=== PATIENT | female | born 1950 | race Caucasian/White ===

== ENCOUNTER → 2017-07-29 | Outpatient (CLI) | payer OTHER | LOC: FIMAGING 09:49 | PROVIDERS: ATTEND Orthopaedic Surgery | DX: Z01.818 Encounter for other preprocedural examination (principal); M17.12 Unilateral primary osteoarthritis, left knee ==

== ENCOUNTER 2017-08-11 05:57 | Inpatient (IN) | payer OTHER ==
[2017-08-11] MEDS ORDERED: ROPIVACAINE 0.2% 80 MG, EPINEPHrine 0.2 MG, KETOROLAC TROMETHAMINE 30 MG in SYRINGE 0 ML IU ONE (06:00)
[2017-08-11] MEDS ORDERED: TRANEXAMIC ACID 3,000 MG in NS 50 ML IRR ONE (06:00)
[2017-08-11] MEDS ORDERED: ACETAMINOPHEN 325 MG TAB PO ONE (06:16)
[2017-08-11] MEDS ORDERED: DEXAMETHASONE 4 MG/ML VIAL IVP ONE (06:16)
[2017-08-11] MEDS ORDERED: ceFAZolin 2 GM/SWFI 2 GM/20 ML SYR IVP ONE (06:16)
[2017-08-11] MEDS ORDERED: FAMOTIDINE 20 MG TAB PO ONE (06:16)
[2017-08-11] MEDS ORDERED: LR 1,000 ML IV ONE ×2 (06:17→23:30)
[2017-08-11] MEDS ORDERED: TRANEXAMIC ACID 3,000 MG/50 ML BAG IRR ONE (06:43)
[2017-08-11] MEDS ORDERED: VANCOMYCIN 1 GM VIAL ONE ×2 (06:44)
[2017-08-11] MEDS ORDERED: MIDAZOLAM 2 MG/2 ML VIAL ONE (06:54)
[2017-08-11] MEDS ORDERED: BUPIVACAINE 0.5% 30 ML SDV ONE (06:56)
[2017-08-11] MEDS ORDERED: PROPOFOL 200 MG/20 ML VIAL ONE ×3 (07:00→08:02)
[2017-08-11] MEDS ORDERED: LIDOCAINE 2% 5 ML SDV ONE (07:02)
--- NOTE | 2017-08-11 07:08 | PDHPUP ---
History & Physical Update H&P update statement: This history and physical update is based on an assessment of the patient which was completed after admission or registration (within 24 hours), but prior to the surgery/procedure. H&P update: H&P reviewed & patient examined, no change in patient's condition since H&P completed
[2017-08-11] MEDS ORDERED: MIDAZOLAM 2 MG/2 ML VIAL IVP ONE (07:09)
[2017-08-11] MEDS ORDERED: ONDANSETRON DISINTEGRATING 4 MG TAB PO PRN (07:28)
[2017-08-11] MEDS ORDERED: BISACODYL 10 MG SUPP PR PRN (07:28)
[2017-08-11] MEDS ORDERED: diphenhydrAMINE 25 MG CAP PO PRN (07:28)
[2017-08-11] MEDS ORDERED: METOCLOPRAMIDE 10 MG/2 ML VIAL IVP PRN (07:28)
[2017-08-11] MEDS ORDERED: DIPHENOXYLATE/ATROPINE LOMOTIL 1 TAB PO PRN (07:28)
[2017-08-11] MEDS ORDERED: PROMETHAZINE HCL 25 MG/ML INJ IVP PRN (07:28)
[2017-08-11] MEDS ORDERED: ONDANSETRON 4 MG/2 ML VIAL IVP PRN ×2 (07:28→07:59)
[2017-08-11] MEDS ORDERED: POLYETHYLENE GLYCOL 3350 17 GM PKT PO PRN (07:28)
[2017-08-11] MEDS ORDERED: MAGNESIUM HYDROXIDE 30 ML UDCUP PO PRN (07:28)
[2017-08-11] MEDS ORDERED: LACTULOSE 20 GM/30 ML UDCUP PO PRN (07:28)
[2017-08-11] MEDS ORDERED: TEMAZEPAM 15 MG CAP PO PRN (07:28)
[2017-08-11] MEDS ORDERED: PROMETHAZINE HCL 25 MG SUPPR PR PRN (07:28)
[2017-08-11] MEDS ORDERED: LR 1,000 ML IV SCH (07:30)
--- NOTE | 2017-08-11 07:36 | PDANEPAE ---
ANE History of Present Illness left TKA ANE Past Medical History - Cardiovascular History Hx Hypertension: No Hx Arrhythmias: No Hx Chest Pain: No Hx Coronary Artery / Peripheral Vascular Disease: No Hx CHF / Valvular Disease: No Hx Palpitations: No - Pulmonary History Hx COPD: No Hx Asthma/Reactive Airway Disease: No Hx Recent Upper Respiratory Infection: No Hx Oxygen in Use at Home: No Hx Sleep Apnea: No Sleep Apnea Screening Result - Last Documented: Negative - Neurologic History Hx Cerebrovascular Accident: No Hx Seizures: No Hx Dementia: No - Endocrine History Hx Diabetes: No Obesity: no - Renal History Hx Renal Disorders: No - Liver History Hx Hepatic Disorders: No - Neurological & Psychiatric Hx Hx Neurological and Psychiatric Disorders: No - Cancer History Hx Cancer: No - Congenital Disorder History Hx Congenital Disorders: No - GI History Hx Gastrointestinal Disorders: No - Other Health History Other Health History: wears reading glasses - Chronic Pain History Chronic Pain: Yes (left knee) - Surgical History Prior Surgeries: Right TKA. left knee scope ANE Review of Systems Review of systems is: negative Review of Systems: - Exercise capacity METS (RN): 5 METS ANE Patient History - Allergies Allergies/Adverse Reactions: guaifenesin [From Mucinex] Allergy (Verified 07/19/17 13:50) Other-Enter Comments tramadol Allergy (Verified 07/19/17 13:50) Hypotensive - Home Medications Home medications: home medication list seen and reviewed Home Medications: Aspirin EC [Aspirin EC 81 mg (*)] 81 mg PO DAILY 07/13/17 [Last Taken Unknown] Biest 0.8mg/0.2mg/P 100/Test 0.5mg 1 tab PO DAILY 07/13/17 [Last Taken Unknown] Calcium Carb W/Vit D [Calcium Carb W/Vit D 500/200 (*)] 500 mg PO DAILY [Last Taken Unknown] Cholecalciferol Vit D3 [Vitamin D3 2000 units tab (OTC)] 5,000 units PO DAILY [Last Taken Unknown] Cyanocobalamin [Vitamin B12 (*)] 1,000 mcg PO DAILY 07/13/17 [Last Taken Unknown ] Herbals/Supplements -Info Only 1 ea PO DAILY 07/13/17 [Last Taken Unknown] Ibuprofen [Motrin (*)] 600 mg PO BID PRN 07/13/17 [Last Taken Unknown] Multivitamins [Multivitamin (*)] 1 each PO DAILY 07/13/17 [Last Taken Unknown] [place]-3 Fatty Acids [Fish Oil 1000 mg (*)] 1,000 mg PO DAILY 07/13/17 [Last Taken Unknown] Tretinoin 1 christofer TP MOWEFR 07/13/17 [Last Taken Unknown] - NPO status NPO Since - Liquids (Date): 08/11/17 NPO Since - Liquids (Time): 06:00 NPO Since - Solids (Date): 08/10/17 NPO Since - Solids (Time): 21:00 - Smoking Hx Smoking Status: Never smoked - Family Anes Hx Family Hx Anesthesia Complications: none ANE Labs/Vital Signs - Vital Signs Height: 167.64 cm Weight: 68.039 kg ANE Physical Exam - Airway Neck exam: FROM Mallampati Score: Class 1 Mouth exam: normal dental/mouth exam - Pulmonary Pulmonary: no respiratory distress - Cardiovascular Cardiovascular: regular rate and rhythym - ASA Status ASA Status: II ANE Anesthesia Plan Anesthesia Plan: spinal Regional Anesthesia: single shot NB, adductor canal FNB Urgent/Emergent Case: Tommy olsen completed preop but documented later for safe timely pt care
[2017-08-11] MEDS ORDERED: LR 500 ML IV PRN (07:59)
[2017-08-11] MEDS ORDERED: ALBUTEROL 3 ML DEYVIAL IH PRN (07:59)
[2017-08-11] MEDS ORDERED: NALOXONE HCL 0.4 MG/ML INJ IVP PRN (07:59)
[2017-08-11] MEDS ORDERED: ACETAMINOPHEN 500 MG TAB PO PRN (07:59)
[2017-08-11] MEDS ORDERED: OXYCODONE/APAP 5/325 TAB PO PRN (07:59)
[2017-08-11] MEDS ORDERED: fentaNYL 100 MCG/2 ML INJ IVP PRN (07:59)
[2017-08-11] MEDS ORDERED: HYDROCODONE/APAP 5/325 TAB PO PRN (07:59)
[2017-08-11] MEDS ORDERED: HYDROmorphONE/DILAUDID 1 MG/ML INJ IVP PRN (07:59)
--- NOTE | 2017-08-11 08:40 | POSTOPPROG ---
Post Op Note Date of Operation: 08/11/17 Surgeon: Angel Ballard Employee Adviser: chantel ballard Anesthesia: Spinal, Other (Specify) (adductor canal block) Pre-op Diagnosis: left knee OA Post-op Diagnosis: same Indication: left knee pain due to OA that failed conservative measures Procedure: L TKA robot assisted Findings: severe knee OA Inf/Abcess present in the surg proc area at time of surgery?: No EBL: 50-100
--- NOTE | 2017-08-11 09:09 | POSTANESTH ---
Post Anesthetic Evaluation Cardiovascular Status: Normal, Stable Respiratory Status: Normal, Stable Level of Consciousness/Mental Status: Can Participate in Eval Pain Control: Adequate, Prn Tx Ordered Nausea/Vomiting Control: Adequate, Prn Tx Ordered Complications Possibly Related to Anesthesia: None Noted
[2017-08-11] MEDS: SENNOSIDES/DOCUSATE SODIUM TAB PO SCH ×2 (11:46→21:40)
[2017-08-11] MEDS: CYCLOBENZAPRINE 10 MG TAB PO PRN ×2 (13:07→23:34)
[2017-08-11] MEDS: ACETAMINOPHEN 325 MG TAB PO SCH ×3 (13:07→23:31)
[2017-08-11] MEDS: oxyCODONE IR 5 MG TAB PO PRN ×3 (13:54→21:41)
[2017-08-11] MEDS: ceFAZolin 2 GM/DEXTROSE 100 ML IV SCH ×2 (14:00→21:42)
[2017-08-11 16:27] VITALS: RESP 16
[2017-08-11] MEDS: ASPIRIN 81 MG CHEWABLE TAB PO SCH (21:40)
[2017-08-11] MEDS: FAMOTIDINE 20 MG TAB PO SCH (21:41)
[2017-08-12] MEDS: oxyCODONE IR 5 MG TAB PO PRN ×3 (02:18→09:13)
[2017-08-12 05:13] LABS: HEMATOCRIT 33.3 % (38.0-47.0); HEMOGLOBIN 11.5 g/dL (12.6-16.3)
[2017-08-12] MEDS: ACETAMINOPHEN 325 MG TAB PO SCH ×2 (06:15→11:18)
--- NOTE | 2017-08-12 07:04 | GOP ---
[f rep st] OPERATIVE REPORT DATE OF OPERATION: 08/11/2017 SURGEON: Jatinder Daigle MD RECRUITING TEAM LEAD: BEATA Vitale. ANESTHESIA: Spinal. PREOPERATIVE DIAGNOSIS: Left knee osteoarthritis. POSTOPERATIVE DIAGNOSIS: Left knee osteoarthritis. PROCEDURE PERFORMED: Total knee arthroplasty with robotic assistance and computer navigation. FINDINGS/PATHOLOGY: Severe medial and patellofemoral osteoarthritis. ESTIMATED BLOOD LOSS: 30 cc. INDICATIONS: This is a 67-year-old female with severe and progressive pain and deformity of the left knee unresponsive to conservative care. Risks and benefits of the surgical intervention were explained in detail. DESCRIPTION OF PROCEDURE: The patient was brought to the operative room and placed on the table in the supine position. Spinal anesthesia was induced without difficulty. A pneumatic tourniquet was applied about the left proximal thigh, and the leg was prepped and draped in a sterile fashion. The leg fox was applied. After exsanguination by elevation the tourniquet was inflated to 275 mm of mercury. Incision was made anterior medial from the tibial tuberosity to a point 2 cm proximal to the superior pole of the patella. Medial parapatellar arthrotomy was carried out from the superior pole of the patella and posteriorly in line with the fibers of the Type II VMO. The medial collateral ligament was elevated and the infrapatellar fat pad was resected. The patella was everted and the articular surface was excised. A 35 mm patellar button was placed. Attention was turned first to the distal aspect of the left femur. At 3 cm proximal to the medial rise of the femur, 2 percutaneous half pins were placed for fixation of the femoral array. In a similar fashion, 2 pins were placed anteromedial on the tibia for fixation of the tibial array. External land marking and registration of the hip center was performed without difficulty. Internal femoral and tibial registration was carried out without difficulty and the femoral and tibial checkpoints were placed and verified for accuracy. Attention was turned to the femur. The foot print for the size 3 femoral component was cut with the saw using the Vennli robotic system and verified for accuracy against the CT based plan. In a similar fashion, saw was used to cut the footprint for the size 4 tibial component using the Vennli system and verified for accuracy against the CT based plan. The tibial articular surface was excised without difficulty, followed by the intercondylar box cut. The knee was extended and the remnants of the medial and lateral meniscus were excised. The posterior capsule was injected with ropivacaine, epinephrine and Toradol. A size 4 MIS mini-keel tibial tray was positioned. Trial reduction was then carried out. There was excellent range of motion, alignment, and stability using the 9 mm polyethylene. All trials were then removed. The joint was thoroughly irrigated and carefully dried. Two packages of cement and 2 grams of vancomycin were mixed in the vacuum mixer and placed on the fixation surfaces of all surfaces of the components. The components were implanted and all excess cement was thoroughly removed. The permanent 9 mm polyethylene was placed without difficulty. The tourniquet was deflated and all bleeders were coagulated. The wound was thoroughly irrigated and closed using interrupted sutures of 2-0 Vicryl for the joint capsule. The subcu was closed with 3-0 Vicryl and the skin with 4-0 Monocryl. Dermabond and Steri-Strips were applied followed by a compressive dressing. The patient was then moved from the operating room to the recovery room in good condition, having tolerated the procedure well. /[id number]/MODL MTDD
[2017-08-12 07:58] VITALS: TEMP 97.9; O2SAT 98
[2017-08-12 08:05] VITALS: PULSE 67
[2017-08-12] MEDS: FAMOTIDINE 20 MG TAB PO SCH (08:23)
[2017-08-12] MEDS: ASPIRIN 81 MG CHEWABLE TAB PO SCH (08:23)
[2017-08-12] MEDS: SENNOSIDES/DOCUSATE SODIUM TAB PO SCH (08:23)
[2017-08-12 10:59] VITALS: BP 80/46
[2017-08-12] MEDS: CYCLOBENZAPRINE 10 MG TAB PO PRN (11:17)
--- NOTE | 2017-08-12 15:00 | ASDISCHSUM ---
Discharge Information Plan Status:Home with No Needs Medically Cleared to Leave: Discharge Date:08/12/2017 02:19 PM CM D/C Disposition:Home, Routine, Self-Care ADT D/C Disposition:Home, Routine, Self-Care Projected Discharge Date:08/12/2017 02:19 PM Transportation at D/C: Discharge Delay Reason: Follow-Up Date:08/12/2017 02:19 PM Discharge Slot: Final Diagnosis: Placement Information Patient Contact Information Contact Name:LISA Relationship:Jared Address: Home Phone: City: [facility] Phone: [facility]/[employer] Code: Email: Financial Information Financial Class: Primary Plan Desc:MEDICARE INPATIENT Primary Plan Number:[id number] Secondary Plan Desc:GABI ARANDATY Secondary Plan Number:[id number] Assessment Information Intervention Information
--- NOTE | 2017-08-12 20:32 | SOAPPROG ---
SOAP Progress Note Assessment/Plan: Assessment: Cecy is doing well s/p L TKA 1) pain management: pain is well controlled on oral pain meds.. c/o right arm pain 2) VTE ppx: recommend aspirin 81 mg BID for 4 weeks 3) lightheadedness: improved today, continue fluid intake 4) d/c to home once PT releases patient Plan: 08/12/17 20:29 Subjective: Cecy is resting comfortably today, denies SOB ,chest pain and N/V Objective: Vital Signs Temp Pulse Resp BP Pulse Ox 36.6 C 67 16 80/46 L 98 08/12/17 07:56 08/12/17 08:02 08/12/17 07:56 08/12/17 09:33 08/12/17 07:56 Laboratory Results 08/12/17 04:58 08/11/17 08/12/17 08/13/17 05:59 05:59 05:59 Intake Total 1350 2049 Output Total 1930 Balance -580 2049 LLE: incision dressing is clean and dry, NVI, +pf/df ICD10 Worksheet Patient Problems: Problems Problem Status Onset Primary localized osteoarthritis of left knee Acute
--- NOTE | 2017-08-16 18:44 | GDS ---
[f rep st] DISCHARGE SUMMARY ADMISSION DIAGNOSIS: Left knee osteoarthritis. DISCHARGE DIAGNOSIS: Left knee osteoarthritis. PROCEDURE: Left total knee arthroplasty, Makoplasty, robot assisted. VTE PROPHYLAXIS: Aspirin recommended, 81 mg twice a day for 3 weeks. BRIEF DESCRIPTION OF HOSPITAL STAY: Patient was admitted for an elective joint arthroplasty. The patient tolerated the procedure well and has passed physical therapy. The patient was given appropriate antibiotic prophylaxis and venous thromboembolism prophylaxis. The patient's pain was well controlled on oral pain medication, patient was holding down food, and had urinated. Decision was made to discharge the patient. The patient was given post-operative prescriptions pre-operatively. PLAN: Please follow up as scheduled August 30 at 9 a.m. with Ernestine Daigle. /[id number]/MODL MTDD
== END 2017-08-12 14:19 | disposition home or self-care (01) | DRG 470 ==
LOC: F3N 05:57
PROVIDERS: ADMIT Orthopaedic Surgery; ATTEND Orthopaedic Surgery
PROC: 8E0Y0CZ Robotic Assisted Procedure of Lower Extremity, Open Approach (ICD-10-PCS; principal; 2017-08-11 07:15)
PROC: 0SRD0J9 Replacement of Left Knee Joint with Synthetic Substitute, Cemented, Open Approach (ICD-10-PCS; principal; 2017-08-11 07:15)
DX: M17.12 Unilateral primary osteoarthritis, left knee (principal)
CPT/HCPCS: 97110-GP; 97116-GP; 97161-GP; 97165-GO; 97535-GO; C1713; G8978-GP-CI; G8979-GP-CI; G8980-GP-CI; G8987-GO-CI; G8988-GO-CI; G8989-GO-CI; J0171; J0690; J1100; J1885; J2250; J2704; J2795; J3370

== ENCOUNTER → 2017-11-18 | Outpatient (CLI) | payer OTHER | LOC: FIMAGING 08:42 | PROVIDERS: ATTEND Physician Assistant Medical | DX: Z12.31 Encounter for screening mammogram for malignant neoplasm of breast (principal) ==